=== PATIENT | male | born 1970 ===

== ENCOUNTER 2017-10-01 00:01 | Emergency (ER) | payer SELFPAY ==
[2017-10-01 00:16] VITALS: TEMP 98.9; O2SAT 95
[2017-10-01] MEDS ORDERED: Multivitamin (MVI) 10 ML, Folic Acid 1 MG, Thiamine 100 MG in Dextrose 5%/0.45% NS 1,00... IV ONE (00:40)
--- NOTE | 2017-10-01 01:48 | ED PDOC ---
HPI: General Adult Time Seen by Provider: 10/01/17 00:39 Chief Complaint (Nursing): Alcohol Ingestion Chief Complaint (Provider): Alcohol Ingestion History Per: Patient, EMS History/Exam Limitations: no limitations Onset/Duration Of Symptoms: Days (x 1) Current Symptoms Are (Timing): Still Present Additional Complaint(s): Nilo is a 47 year old male with a history of quality substance abuse and alcoholism who presents to the emergency department via EMS complaining of alcohol withdrawal, onset today. Patient states he drank heavily for the past 6 days. States he did not have his normal amount of alcohol. Reports withdrawal symptoms. Reports palpitations, sense of anxiety, nausea and episodes of non- bloody, non-bilious vomiting. Patient has a former history of heroin abuse, but states he has not used. Admits to abusing Oxycodone. Last took 24 hours ago. PMD: Provider [facility]. Past Medical History Reviewed: Historical Data, Nursing Documentation, Vital Signs Vital Signs: Last Vital Signs Temp 98.9 F 10/01/17 00:13 Pulse 85 10/01/17 02:55 Resp 18 10/01/17 02:55 BP 134/79 10/01/17 02:55 Pulse Ox 95 10/01/17 02:55 - Medical History PMH: No Chronic Diseases - Surgical History Surgical History: No Surg Hx - Family History Family History: States: Unknown Family Hx - Social History Alcohol: > 2 Drinks/Day Drugs: Cannabis, Other (Oxycodone) - Allergies Allergies/Adverse Reactions: Allergies Allergy/AdvReac Type Severity Reaction Status Date / Time No Known Allergies Allergy Verified 10/01/17 00:13 Review of Systems ROS Statement: Except As Marked, All Systems Reviewed And Found Negative Cardiovascular: Positive for: Palpitations Gastrointestinal: Positive for: Nausea, Vomiting (non-bloody, non-bilious) Psych: Positive for: Anxiety Physical Exam - Reviewed Nursing Documentation Reviewed: Yes Vital Signs Reviewed: Yes - Physical Exam Appears: Positive for: Non-toxic Head Exam: Positive for: ATRAUMATIC, NORMAL INSPECTION, NORMOCEPHALIC Skin: Positive for: Normal Color, Warm, Dry Eye Exam: Positive for: Normal appearance ENT: Positive for: Normal ENT Inspection Neck: Positive for: Normal Cardiovascular/Chest: Positive for: Regular Rate, Rhythm Respiratory: Positive for: Normal Breath Sounds. Negative for: Respiratory Distress Gastrointestinal/Abdominal: Positive for: Normal Exam Back: Positive for: Normal Inspection Extremity: Positive for: Normal ROM. Negative for: Deformity Neurologic/Psych: Positive for: Alert, Mood/Affect (Somewhat flat) - Laboratory Results Result Diagrams: 10/01/17 01:46 10/01/17 01:46 - ECG O2 Sat by Pulse Oximetry: 95 (RA) Medical Decision Making Medical Decision Making: Time: 00:39 Plan: - EKG - Alcohol Serum - CMP - Drug Screen, Urine - CBC - Dextrose 5%/0.45% NS 1000 ml, M.V.I. - 12 Inj, Vimtamin B1 Inj - Accucheck - Urinalysis Time: 01:10 - Pepcid 20 mg IV STAT - Zofran Inj Labs shows no clinical abnormalities. Patient feels better. Diagnosis is alcoholism, opiate abuse and anxiety. Upon provider evaluation patient is medically stable, and requires no further treatment in the ED at this time. There is agreement to discharge plan. Return if symptoms persist or worsen. Scribe Attestation: Documented by Larry Ontiveros, acting as a scribe for Ghassan Mckinnon MD Provider Scribe Attestation: All medical record entries made by the Scribe were at my direction and personally dictated by me. I have reviewed the chart and agree that the record accurately reflects my personal performance of the history, physical exam, medical decision making, and the department course for this patient. I have also personally directed, reviewed, and agree with the discharge instructions and disposition. Disposition - Clinical Impression Clinical Impression: Opiate abuse, episodic, Alcoholism - Patient ED Disposition Is Patient to be Admitted: No - Disposition Disposition: Routine/Home Disposition Time: 03:00 Condition: STABLE Instructions: Narcotic Abuse (ED), Alcohol Dependence (ED) Forms: [employer] (E[place]ian)
[2017-10-01 01:49] LABS: BASO # 0.1 K/uL (0.0-0.2); BASO % 0.8 % (0.0-2.0); EOS % 0.1 % (0.0-4.0); HEMOGLOBIN 15.5 g/dL (12.0-18.0); LYMPH % 27.7 % (20.0-40.0); MEAN CELL VOLUME 93.9 fl (80.0-94.0); MEAN CORPUSCULAR HEMOGLOBIN 31.6 pg (27.0-31.0); MEAN CORPUSCULAR HGB CONC 33.7 g/dL (33.0-37.0); MEAN PLATELET VOLUME 7.4 fl (7.2-11.7); MONO # 0.4 K/uL (0.0-0.8); MONO % 5.4 % (0.0-10.0); NEUT # 4.7 K/uL (1.8-7.0); NRBC % 0.1 % (0.0-0.0); RBC 4.89 Mil/uL (4.40-5.90); RED CELL DISTRIBUTION WIDTH 13.6 % (11.5-14.5); WHITE BLOOD COUNT 7.1 K/uL (4.8-10.8)
[2017-10-01 01:57] LABS: ALBUMIN 4.8 g/dL (3.5-5.0); ALT/SGPT 42 U/L (21-72); AST/SGOT 40 U/L (17-59); BLOOD UREA NITROGEN 11 mg/dl (9-20); CALCIUM 9.5 mg/dL (8.4-10.2); GFR AFRICAN-AMERICAN > 60; GFR NON-AFRICAN AMERICAN > 60
[2017-10-01 01:58] LABS: ALB/GLOB RATIO 1.3 (1.0-2.1)
[2017-10-01 02:04] LABS: URINE BILIRUBIN NEGATIVE (NEGATIVE); URINE BLOOD SMALL (NEGATIVE); URINE CLARITY CLEAR (Clear); URINE COLOR COLORLESS (YELLOW); URINE GLUCOSE (UA) NEG (Normal); URINE LEUKOCYTE ESTERASE NEG Leu/uL (Negative); URINE NITRATE NEGATIVE (NEGATIVE); URINE PROTEIN NEGATIVE (NEGATIVE); URINE UROBILINOGEN 0.2-1.0 mg/dL (0.2-1.0)
[2017-10-01 02:17] LABS: BARBITURATES, UR NEGATIVE (NEGATIVE); BENZODIAZEPINES, UR NEGATIVE (NEGATIVE); OPIATES, UR NEGATIVE (NEGATIVE); PHENCYCLIDINE, UR NEGATIVE (NEGATIVE)
[2017-10-01 02:55] VITALS: BP 134/79; PULSE 85; RESP 18
== END 2017-10-01 03:45 | disposition home or self-care (01) ==
LOC: H.ER 00:01
DX: F11.10 Opioid abuse, uncomplicated (principal); F10.20 Alcohol dependence, uncomplicated; F41.9 Anxiety disorder, unspecified
CPT/HCPCS: 80053; 81003; 82948; 85025; 99282; G0480; J2405; J3411; J7042